=== PATIENT | female | born 2000 | race Caucasian/White ===

== ENCOUNTER 2022-09-15 03:20 | Emergency (ER) | payer MEDICAID, OTHER ==
[~2022-09-15] VITALS: Ht 160 cm; Wt 59.0 kg
[2022-09-15 03:28] VITALS: BP 129/71; O2SAT 99
[2022-09-15 03:53] LABS: CLARITY URINE CLEAR (CLEAR); COLOR URINE YELLOW (YELLOW); KETONES URINE NEGATIVE (NEGATIVE); LEUKOCYTE ESTERASE URINE 3+ (NEGATIVE); NITRITE URINE NEGATIVE (NEGATIVE); OCCULT BLOOD URINE NEGATIVE (NEGATIVE); PH URINE 6.5 (4.5-8.0); PROTEIN URINE NEGATIVE (NEGATIVE); SPECIFIC GRAVITY URINE 1.009 (1.005-1.030); UROBILINOGEN URINE 0.2 E.U./dL (0.2-1.0)
[2022-09-15 04:20] LABS: BASOPHILS % 0.4 % (0.0-2.0); EOSINOPHILS % 0.4 % (0.0-5.0); HEMOGLOBIN. 12.3 g/dL (12.0-16.0); LYMPHOCYTES % 27.2 % (20.0-50.0); MEAN CORPUSCULAR HEMOGLOBIN 31.9 pg (28.0-32.0); MEAN CORPUSCULAR VOLUME 90.6 fL (81.0-99.0); MEAN PLATELET VOLUME 9.6 fl (7.4-10.4); PLATELET 226 x1000/uL (130-400); RED BLOOD CELL COUNT 3.86 mill/uL (4.2-5.4)
[2022-09-15 04:29] LABS: CHLORIDE 108 mEq/L (98-107)
[2022-09-15 06:24] LABS: HCG SCREEN POSITIVE
[2022-09-15] MEDS ORDERED: CEPH250C2 MT (06:42)
[2022-09-15 06:51] VITALS: PULSE 78; RESP 18; TEMP 97.4
== END 2022-09-15 06:52 | disposition home or self-care (01) ==
LOC: ER 05:56
DX: O23.41 Unspecified infection of urinary tract in pregnancy, first trimester (principal); N39.0 Urinary tract infection, site not specified; Z3A.09 9 weeks gestation of pregnancy
CPT/HCPCS: 36415; 80053; 81003; 81025; 84703; 85025; 99283

== ENCOUNTER 2024-08-03 08:20 | Emergency (ER) | payer MEDICAID, OTHER ==
[~2024-08-03] VITALS: Ht 160 cm; Wt 52.0 kg
[~2024-08-03 08:20] MED LIST: CEPH250C2 MT
[2024-08-03 08:22] VITALS: O2SAT 99
[2024-08-03] MEDS: KETOROLAC 15MG/ML VIAL IM ONE (09:00)
[2024-08-03] MEDS: ACETAMINOPHEN 325MG TABLET PO ONE (09:01)
[2024-08-03] MEDS: LIDOCAINE 5% PATCH TOP ONE (09:05)
[2024-08-03 09:20] LABS: HCG SCREEN NEGATIVE
[2024-08-03] MEDS ORDERED: CYCL10TA21 MT (11:41)
[2024-08-03] MEDS ORDERED: LIDO700A30 TP (11:41)
[2024-08-03 11:48] VITALS: BP 111/70; PULSE 81; RESP 16; TEMP 36.8; O2SAT 99
== END 2024-08-03 12:00 | disposition home or self-care (01) ==
LOC: ER 08:20
DX: M62.838 Other muscle spasm (principal); V49.9XXA Car occupant (driver) (passenger) injured in unspecified traffic accident, initial encounter; Y93.89 Activity, other specified; Y92.410 Unspecified street and highway as the place of occurrence of the external cause; Y99.8 Other external cause status
CPT/HCPCS: 99285; 70450; 81025; 84703; 73610; 73630; 72125; 96372; J1885